=== PATIENT | female | born 1955 | race Caucasian/White ===

== ENCOUNTER → 2017-12-20 16:05 | Outpatient (CLI) | payer SELFPAY ==
[2017-12-27 11:47] LABS: HPV Reflexed? NOT INDICATED
== END ==
PROVIDERS: Family Provider Internal Medicine; PCP Internal Medicine; Visit Provider Obstetrics & Gynecology
DX: Z12.4 Encounter for screening for malignant neoplasm of cervix (principal)
CPT/HCPCS: 88175; G0145

== ENCOUNTER → 2017-12-21 08:41 | Outpatient (CLI) | payer BC, SELFPAY ==
[2017-12-21 09:29] LABS: Hemoglobin A1c 5.1 % (4.2-6.3)
[2017-12-21 09:41] LABS: Estradiol 20.7 pg/mL; Free T3 2.6 pg/mL (2.18-3.98); T4 Free Direct 0.99 ng/dL (0.76-1.46); Thyroid Stim Hormone (TSH) 1.73 uIU/mL (0.358-3.74)
[2017-12-22 11:46] LABS: DHEA Sulfate 47.8 ug/dL (29.4-220.5)
== END ==
PROVIDERS: Family Provider Internal Medicine; PCP Internal Medicine; Visit Provider Obstetrics & Gynecology
DX: Z78.0 Asymptomatic menopausal state (principal)
CPT/HCPCS: 36415; 82533; 82627; 82670; 83036; 84144; 84403; 84439; 84443; 84481; 82626

== ENCOUNTER → 2018-01-08 07:19 | Outpatient (CLI) | payer BC, SELFPAY | PROVIDERS: Family Provider Internal Medicine; PCP Internal Medicine; Visit Provider Obstetrics & Gynecology | DX: Z12.31 Encounter for screening mammogram for malignant neoplasm of breast (principal) | CPT/HCPCS: 77063; 77067 ==

== ENCOUNTER → 2018-01-15 09:06 | Outpatient (CLI) | payer BC, SELFPAY | PROVIDERS: Family Provider Internal Medicine; PCP Internal Medicine; Visit Provider Obstetrics & Gynecology | DX: R92.8 Other abnormal and inconclusive findings on diagnostic imaging of breast (principal) | CPT/HCPCS: 76642; 77065 ==

== ENCOUNTER → 2018-05-21 09:49 | Outpatient (CLI) | payer BC, SELFPAY ==
--- NOTE | 2018-05-21 09:53 | CDU_ITS ---
Reason For Study: Carotid Stenosis Rt. Velocities/BP Lt. Velocities/BP Prox CCA 99/22 cm/sec. Prox CCA 70/15 cm/sec. Mid CCA 82/22 cm/sec. Mid CCA 86/31 cm/sec. Dist CCA 80/28 cm/sec. Dist CCA 71/24 cm/sec. Prox ICA 63/23 cm/sec. Prox ICA 71/26 cm/sec. Mid ICA 100/45 cm/sec. Mid ICA 90/38 cm/sec. Dist ICA 61/30 cm/sec. Dist ICA 99/45 cm/sec. Rt. ICA/CCA = 1.22. Lt. ICA/CCA = 1.15. Prox ECA 82/21 cm/sec. Prox ECA 83/22 cm/sec. Rt. Vert. 49/18 cm/sec. Lt. Vert. 37/15 cm/sec. Right Extracranial There is intimal thickening but no significant atherosclerotic plaque noted in the right common carotid artery. There is intimal thickening but no significant atherosclerotic plaque noted in the right internal carotid artery. The right internal carotid artery is very tortuous. There is no significant atherosclerotic plaque noted in the right external carotid artery. Antegrade flow is noted in the right vertebral artery. Left Extracranial There is intimal thickening but no significant atherosclerotic plaque noted in the left common carotid artery. There is no significant atherosclerotic plaque noted in the left internal carotid artery. The left internal carotid artery is very tortuous. There is no significant atherosclerotic plaque noted in the left external carotid artery. Antegrade flow is noted in the left vertebral artery. Procedure Carotid Duplex 08252. Exam performed in department. Interpretation Summary No hemodynamically significant plague or stenosis bilateral extracranial internal carotid arteries with <50% stenosis bilaterally. Normal flow bilateral external carotids Patent and antegrade vertebrals bilaterally Ordering Physician: Ivana Kirk Referring Physician: Ivana Kirk Performed By: Cindy Miranda, RDCS, RVT
== END ==
PROVIDERS: Family Provider Internal Medicine; PCP Internal Medicine; Referring Provider Internal Medicine; Visit Provider Internal Medicine
DX: I65.29 Occlusion and stenosis of unspecified carotid artery (principal)
CPT/HCPCS: 93880

== ENCOUNTER → 2018-05-29 09:08 | Outpatient (CLI) | payer BC, SELFPAY ==
[2018-05-29 12:21] LABS: Estradiol 12.3 pg/mL
[2018-05-29 12:26] LABS: Progesterone Level 0.26 ng/mL (See Comment)
== END ==
PROVIDERS: Visit Provider Obstetrics & Gynecology
DX: N95.1 Menopausal and female climacteric states (principal); N94.3 Premenstrual tension syndrome
CPT/HCPCS: 36415; 82670; 84144

== ENCOUNTER → 2019-01-24 06:38 | Outpatient (CLI) | payer BC, SELFPAY ==
--- NOTE | 2019-01-25 11:39 | STRESSREP ---
Stress Test Report Date: 01/25/2019 Procedure: Exercise tolerance test/imaging study Indications: Chest pain Consent: Per the patient Procedure: The patient exercised on a Mann protocol for 5 minutes and 30 seconds achieving a peak heart rate of 164 bpm (103 % predicted maximal heart rate) with a peak blood pressure 170/90 mmHg and a peak MET capacity of 7 METs. The baseline ECG demonstrated normal sinus rhythm. The peak exercise ECG demonstrated sinus tachycardia with baseline artifact. No definite ischemic changes. EKG during recovery revealed no definite ischemic changes [There were no cardiac dysrhythmias pretest, during exercise, or recovery]. The functional capacity was considered slightly decreased for age. There was chest tightness at peak exercise. The examination was discontinued secondary to dyspnea. Impression: 1. Technically adequate (percent predicted maximal heart rate greater than 85%) exercise tolerance test 2. Stress test is negative for exercise-induced EKG changes of ischemia 3. The test test is positive for exercise-induced chest pain 4. Functional capacity is slightly decreased for age 5. Nuclear images pending Myocardial perfusion imaging study: Technique: The patient was injected with 14.2 mCi of technetium 99m Cardiolite and subsequently rest SPECT Cardiolite nuclear imaging was obtained in the horizontal long, vertical long, and short axis views. The patient exercised on a Mann protocol. Please see above for details. The patient was injected with 44.1 mCi of technetium 99m Cardiolite and subsequently stress SPECT Cardiolite nuclear imaging was obtained in the horizontal long, vertical long, and short axis views. A gated Cardiolite study at peak stress was obtained. Interpretation: Rest and stress SPECT Cardiolite nuclear imaging status post realignment, normalization, and attenuation correction, demonstrates overall normal myocardial radioisotope uptake. The gated Cardiolite study demonstrates no significant regional wall motion abnormalities. The reported LVEF is greater than 70 %. Impression: 1. There is no evidence of significant ischemia or infarction. 2. The gated Cardiolite study reports an LVEF of greater than 70 %. This note was generated with [employer] software. It may contain incorrect words, spelling, and punctuation that were not noted in checking the note before signing.
== END ==
PROVIDERS: Family Provider Internal Medicine; PCP Internal Medicine; Referring Provider Internal Medicine; Visit Provider Internal Medicine
DX: R07.9 Chest pain, unspecified (principal)
CPT/HCPCS: 78452; 93017; A9500; A4216

== ENCOUNTER 2020-08-04 16:50 | Outpatient (RCR) | payer BC, SELFPAY ==
[2020-08-04] MEDS: COVID-19 VACC, MRNA(PFIZER)/PF 30 MCG/0.3 ML SYRINGE IM (09:19)
[2020-08-25] MEDS: COVID-19 VACC, MRNA(PFIZER)/PF 30 MCG/0.3 ML SYRINGE IM (09:10)
== END 2020-10-27 23:59 ==
LOC: IMMUN 16:50
PROVIDERS: PCP Internal Medicine; Visit Provider Family Medicine
DX: Z23 Encounter for immunization (principal)
CPT/HCPCS: 0001A; 0002A; 91300

== ENCOUNTER → 2020-11-11 11:46 | Outpatient (CLI) | payer BC, SELFPAY ==
--- NOTE | 2020-11-11 12:00 | CT_ITS ---
STUDY: CTA CHEST REASON FOR EXAM: Female, 65 years old. PE PROTOCOL. COUGH, HX OF COVID, SOB RADIATION DOSAGE (If Supplied By Facility): CTDIvol = ( 11.36 ) mGy, DLP = ( 508.83 ) mGycm TECHNIQUE: The examination was performed with the intravenous administration of IV 100mL Isovue-370. Post-processing of the angiographic images was performed, with multiplanar reformation and 3D reconstruction. Individualized dose optimization techniques were used for this CT. COMPARISON: None. FINDINGS: Normal enhancement of the main pulmonary artery and right and left pulmonary arteries. Normal enhancement of the bilateral peripheral pulmonary arteries. There is no demonstrated pulmonary embolism. Normal thoracic aorta and visualized great vessels. There is no demonstrated aortic dissection. Normal heart and pericardium. Normal mediastinum. Normal hilar regions. Normal visualized trachea and bronchi. The lungs are well expanded. Normal pulmonary parenchyma. Normal pleura. Normal chest wall structures. Hypertrophic changes involving the dorsal spine noted. Normal visualized upper abdomen. CT/CTA Chest W/WO Contrast IMPRESSION: Normal CTA chest examination, without a demonstrated pulmonary embolism or arterial dissection. Electronically Signed: Andrei Patterson, at 12:23 EDT Tel , Service support ,
[2020-11-11 12:06] LABS: CREATININE FINGERSTICK 0.8 mg/dL (0.55-1.02); EGFR FINGERSTICK > 60.0000 mL/min (>60)
== END ==
PROVIDERS: PCP Internal Medicine; Referring Provider Internal Medicine; Visit Provider Internal Medicine
DX: R06.02 Shortness of breath (principal)
CPT/HCPCS: 71275; Q9967

== ENCOUNTER → 2020-12-07 16:26 | Outpatient (CLI) | payer BC, SELFPAY ==
[2020-12-07 17:16] LABS: Hematocrit 34.6 % (37-47); Hemoglobin 10.7 g/dL (12.0-15.0); Mean Corp Hgb Conc 30.9 g/dL (32-36); Mean Corpuscular Hgb 25.1 pg (27.0-32.0); Mean Corpuscular Volume 81.2 fL (81-99); Mean Platelet Vol. 10.2 fl (6.2-12.0); Platelet Count 295 K/mm3 (150-450); RBC Distribution Width CV 16.9 % (11.6-14.6); Red Blood Count 4.26 M/mm3 (4.2-5.4); White Blood Count 6.6 K/mm3 (4.4-11.0)
== END ==
PROVIDERS: PCP Internal Medicine; Visit Provider Internal Medicine Pulmonary Disease
DX: J45.909 Unspecified asthma, uncomplicated (principal)
CPT/HCPCS: 36415; 85027

== ENCOUNTER 2021-01-11 06:21 | Day surgery (SDC) | payer BC, SELFPAY ==
[2020-12-22 10:07] VITALS: BMI 45.8
--- NOTE | 2021-01-11 06:38 | PCM.HP.BLA ---
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: No Is patient in pain?: No Allergies acetaminophen Adverse Reaction (Intermediate, Verified 12/22/20 10:08) muscle aches Medications albuterol sulfate 90 mcg/actuation aerosol inhaler 2 puff INHALATION Q6H PRN 12/22/20 [History Confirmed 12/22/20] citalopram 10 mg tablet 10 mg PO DAILY 12/22/20 [History Confirmed 12/22/20] fluticasone furoate 100 mcg-vilanterol 25 mcg/dose inhalation powder 1 inh INHALATION DAILY 12/22/20 [History Confirmed 12/22/20] ibuprofen 200 mg tablet 200 mg PO Q6H PRN 12/22/20 [History Confirmed 12/22/20] lorazepam 0.5 mg tablet 0.5 mg PO QHS PRN 12/22/20 [History Confirmed 12/22/20] multivitamin with minerals 1 tab PO DAILY 12/22/20 [History Confirmed 12/22/20] Is last menstrual period known: No Post menopausal: Yes Patient : No PFSH Medical History (Updated 12/22/20 @ 14:[address] Fatimah Tan MD) Anemia Anxiety and depression Asthma Carotid stenosis History of COVID-19 History of LEEP (loop electrosurgical excision procedure) of cervix complicating HTN (hypertension) Hyperlipidemia Obesity Rosacea Vitamin D deficiency Surgical History (Updated 12/22/20 @ 10:06 by Larisa Barajas) History of colonoscopy (~2010) History of tubal ligation Family History (Updated 12/22/20 @ 10:07 by Larisa Barajas) Sister Multiple sclerosis Father Cancer Social History Smoking Status: Never smoker HPI HPI HPI: GRACIE BAH, is a 65 F who presents to the office today for endoscopy due to anemia/fatigue. Patient's current hemoglobin 10.7. Did have previous hemoglobins at an outside hospital/lab. Patient denies seeing any blood in her stool does state that she has bowel once daily. Does admit to occasional abdominal cramps which also occurred daily which patient states she has had for years. Patient states she only gets reflux symptoms if she eats after 7:00 PM and does not get it very often denies ever having EGD previously patient did previously have a colonoscopy in 2010 at [facility] which patient states was normal. ROS Resp Respiratory: Yes shortness of breath Gastro Gastrointestinal: Yes abdominal pain, No nausea or vomiting, No diarrhea, Yes constipation, No blood in stool, No acid reflux, No hemorrhoids, No ulcers, No gallbladder problem and No black,tarry stools Exam Const General: cooperative, healthy appearing, comfortable and no acute distress Neck Neck: normal visual inspection Resp Effort & Inspection: normal respiratory effort Cardio Rate: regular rate GI Inspection: non-distended Palpation: soft, no guarding and nontender Skin General: no rashes or lesions noted Neuro General: patient oriented x3 Psych Affect: normal affect Assessment and Plan Assessment and Plan (1) Anemia: Status: Acute Plan - Dr. Fatimah Tan MD: I have discussed the above with the patient. I have offered the patient EGD and colonoscopy for evaluation. I have explained the risks/benefits of the procedure and described the procedure. I have discussed the risks with the patient, including but not limited to: infection, bleeding, perforation of the GI tract requiring emergency surgery, inability to complete the procedure, injury to any internal organs, complications of anesthesia, etc. - the patient understands and agrees to proceed. I have answered all the patient's questions to the patient's satisfaction and the patient has no further questions. The patient has been given instructions for the colon cleansing preparation. 1 day clears, MiraLAX Dulcolax split prep. Fatimah Tan M.D. Pager: [phone] [facility] [address] [place] [address], [facility], [address] [place] [address] Office: [phone] Plan Details Other Orders: Orders: Colonoscopy Today EGD Today Coding Level of Care Code Off vis,new,level 3 Diagnoses Anemia D64.9 12/22/20 1433<Electronically signed by Fatimah Tan MD>Date [facility] [facility]
[2021-01-11 06:47] VITALS: BP 139/91; PULSE 91; RESP 16; TEMP 36.9; O2SAT 97; BMI 44.9
[2021-01-11] MEDS: Lactated Ringers 1,000 ML 100 ML IV (07:07)
--- NOTE | 2021-01-11 07:30 | IMM_PTH ---
PATIENT: GRACIE BAH LOC: EN U#:[id number] AGE/SX: 65/F ROOM: RE01/11/[address]: Dr. Fatimah Tan MD : 1955 BED: DIS: 01/11/2021 SPEC #: [id number] RECD: 01/11/21 12:07 STATUS: JO REQ #: [id number] MICHAEL: 01/11/21 07:[address]: Fatimah Tan DEPT: IMMUNOHISTOCHEMISTRY RECD BY: Isi Smith ENTERED: 01/11/21 12:07 SP TYPE: IMMUNO OTHR DR: Dr. Ivana Kirk, DO Tissues: A - Stomach, NOS Procedures: H Pylori (initial) PHYSICIAN & INSTITUTION [place] [id number] SPECIMEN INFORMATION: Tissue Source: A ? Antrum biopsy Clinical Info: Anemia Specimen Number: [id number] CPT code: 41947 METHODOLOGY: Deparaffinized sections of prefer/formalin-fixed tissue or PAP/DQ stained slides are incubated with monoclonal/polyclonal antibodies/oligonucleotide probes. Localization is made via biotin free immunoperoxidase method. Appropriate controls are performed and reacted as expected. Results on target cell population are indicated in the following table: RESULTS: ANTIBODY / CLONE RESULT Block A H Pylori (polyclonal) positive These tests were developed and their performance characteristics determined by [facility]. They may not have been cleared or approved by the U.S. Food and Drug Administration. The FDA has determined that such clearance or approval is not necessary. INTERPRETATION: A. Antrum biopsy: Positive for numerous Helicobacter pylori organisms. SJ:richard 01/12/2021
--- NOTE | 2021-01-11 07:30 | EGD_PTH ---
PATIENT: GRACIE BAH LOC: EN U#:[id number] AGE/SX: 65/F ROOM: RE01/11/[address]: Dr. Fatimah Tan MD : 1955 BED: DIS: 01/11/2021 SPEC #: [id number] RECD: 01/11/21 10:05 STATUS: JO REFritz #: [id number] MICHAEL: 01/11/21 07:[address]: Fatimah Tan DEPT: SURGICAL PATHOLOGY RECD BY: Eveline Porras ENTERED: 01/11/21 12:44 SP TYPE: EGD BIOPSY OT DR: Dr. Ivana Kirk DO Tissues: A - Gastric mucous membrane B - Gastric mucous membrane C - Cecum, NOS D - Ascending colon Procedures: Special Stain Group II Surgery Specimen Level IV Alcian Blue/PAS (control) HEADER OPERATION: Colonoscopy, EGD ([facility]) PRE-OP DIAGNOSIS: Anemia TISSUE SUBMITTED: A - Antrum biopsy for H. pylori and path, B - GE junction biopsy, C - Cecum biopsy, D - Ascending colon biopsy MICROSCOPIC DIAGNOSIS A. Antrum, biopsy: Moderate chronic active gastritis. Focal intestinal metaplasia. See comment. B. GE junction, biopsy: A fragment of gastroesophageal mucosa with rare cells with intestinal metaplasia (goblet cell metaplasia), consistent with Rees?s esophagus. Mild chronic inflammation. Negative for dysplasia. See comment. C. Cecum, biopsy: Tubular adenoma. D. Ascending colon, biopsy: Fragments of colonic mucosa with focal minimal adenomatous changes. SJ:richard 01/12/2021 COMMENT A. The results of immunohistochemistry for Helicobacter pylori will be reported separately ([id number]). Alcian blue/PAS stain with matched control is used in the evaluation of the specimen. B. Alcian blue/PAS stain with matched control is used in the evaluation of the specimen. MICROSCOPIC DESCRIPTION Slides are reviewed. GROSS DESCRIPTION A - Received in fixative is one container labeled with the patient's name and designated antrum biopsy. The specimen consists of two irregular fragments of light booker soft tissue that in aggregate measure 0.5 x 0.3 x 0.1 cm. The specimen is totally submitted in one cassette. B - Received in fixative is one container labeled with the patient's name and designated GE junction biopsy. The specimen consists of one irregular fragment of light booker soft tissue that measures 0.3 x 0.3 x 0.1 cm. The specimen is totally submitted in one cassette. C - Received in fixative is one container labeled with the patient's name and designated cecum biopsy. The specimen consists of two irregular fragments of light booker soft tissue that in aggregate measure 0.3 x 0.3 x 0.1 cm. The specimen is totally submitted in one cassette. D - Received in fixative is one container labeled with the patient's name and designated ascending colon biopsy. The specimen consists of two irregular fragments of light booker soft tissue that in aggregate measure 0.4 x 0.3 x 0.1 cm. The specimen is totally submitted in one cassette. / SJ:rg 01/11/21 TC:1 CPT: 82569 x4, 44982 x2
--- NOTE | 2021-01-11 08:15 | OP.EGD_ITS ---
Patient Name: Maira Montemayor Procedure Date: 01/11/2021 7:42 AM Date of : 1955 Age: 65 Procedure: Upper GI endoscopy Indications: Iron deficiency anemia Providers: Fatimah Tan MD Medicines: Monitored Anesthesia Care Patient Profile: This is a 65 year old female. Complications: No immediate complications. Procedure: Pre-Anesthesia Assessment: - Prior to the procedure, a History and Physical was performed, and patient medications and allergies were reviewed. The patient's tolerance of previous anesthesia was also reviewed. The risks and benefits of the procedure and the sedation options and risks were discussed with the patient. All questions were answered, and informed consent was obtained. Prior Anticoagulants: The patient has taken no previous anticoagulant or antiplatelet agents. ASA Grade Assessment: Per anesthesia. After reviewing the risks and benefits, the patient was deemed in satisfactory condition to undergo the procedure. After obtaining informed consent, the endoscope was passed under direct vision. Throughout the procedure, the patient's blood pressure, pulse, and oxygen saturations were monitored continuously. The gastroscope was introduced through the mouth, and advanced to the second part of duodenum. The upper GI endoscopy was accomplished without difficulty. The patient tolerated the procedure well. Scope In: 7:49:18 AM Scope Out: 7:53:14 AM Total Procedure Duration Time 0 hours 3 minutes 56 seconds Findings: The Z-line was irregular and was found 32 cm from the incisors. Biopsies were taken with a cold forceps for histology. A 3 cm hiatal hernia was present. Diffuse moderately erythematous mucosa without bleeding was found in the gastric antrum. Biopsies were taken with a cold forceps for histology. Biopsies were taken with a cold forceps for Helicobacter pylori cultures. The examined duodenum was normal. Impression: - Z-line irregular, 32 cm from the incisors. Biopsied. - 3 cm hiatal hernia. - Erythematous mucosa in the antrum. Biopsied. - Normal examined duodenum. Recommendation: - Await pathology results. - Discharge patient to home. - Resume previous diet. - Continue present medications. - Use Protonix (pantoprazole) 40 mg PO daily for 1 month. Procedure Code(s): --- Professional --- 97009, PT, Esophagogastroduodenoscopy, flexible, transoral; with biopsy, single or multiple Diagnosis Code(s): --- Professional --- K22.8, Other specified diseases of esophagus K44.9, Diaphragmatic hernia without obstruction or gangrene K31.89, Other diseases of stomach and duodenum D50.9, Iron deficiency anemia, unspecified CPT copyright 2017 [employer]. All rights reserved. The codes documented in this report are preliminary and upon boating safety officer review may be revised to meet current compliance requirements. MD Fatimah Frtiz MD 01/11/2021 8:15:11 AM This report has been signed electronically. Number of Addenda: 0 Note Initiated On: 01/11/2021 7:42 AM
[2021-01-11 08:16] VITALS: BP 139/91; BP 146/89; PULSE 94; RESP 16; TEMP 36.6; O2SAT 92
--- NOTE | 2021-01-11 08:16 | OP.CCLET_ITS ---
01/11/2021 Ivana Kirk [address] [place] [address] Re : Upper GI endoscopy procedure for Maira Montemayor Dear Dr. Kirk This procedure was performed on Monday, January 11, 2021. My impressions and recommendations are as follows: Impressions : - Z-line irregular, 32 cm from the incisors. Biopsied. - 3 cm hiatal hernia. - Erythematous mucosa in the antrum. Biopsied. - Normal examined duodenum. Recommendations : - Await pathology results. - Discharge patient to home. - Resume previous diet. - Continue present medications. - Use Protonix (pantoprazole) 40 mg PO daily for 1 month. My findings are described in the full procedure note, which is enclosed. If I can be of further assistance, please feel free to contact me at Doctor phone number(s): , Work: . Sincerely, MD Fatimah Fritz MD 01/11/2021 8:15:11 AM This report has been signed electronically.
[2021-01-11 08:20] VITALS: BP 133/88; BP 139/91; PULSE 85; RESP 18; O2SAT 93
--- NOTE | 2021-01-11 08:22 | OP.COLON_ITS ---
Patient Name: Maira Montemayor Procedure Date: 01/11/2021 7:56 AM Date of : 1955 Age: 65 Procedure: Colonoscopy Indications: Iron deficiency anemia Providers: Fatimah Tan MD Medicines: Monitored Anesthesia Care Patient Profile: This is a 65 year old female. Last Colonoscopy: 2010. Complications: No immediate complications. Procedure: Pre-Anesthesia Assessment: - Prior to the procedure, a History and Physical was performed, and patient medications and allergies were reviewed. The patient's tolerance of previous anesthesia was also reviewed. The risks and benefits of the procedure and the sedation options and risks were discussed with the patient. All questions were answered, and informed consent was obtained. Prior Anticoagulants: The patient has taken no previous anticoagulant or antiplatelet agents. ASA Grade Assessment: Per anesthesia. After reviewing the risks and benefits, the patient was deemed in satisfactory condition to undergo the procedure. After I obtained informed consent, the scope was passed under direct vision. Throughout the procedure, the patient's blood pressure, pulse, and oxygen saturations were monitored continuously. The Colonoscope was introduced through the anus and advanced to the cecum, identified by the appendiceal orifice, ileocecal valve and palpation. The colonoscopy was performed without difficulty. The patient tolerated the procedure well. The quality of the bowel preparation was good. Scope In: 7:57:32 AM Scope Withdrawal Time 0 hours 9 minutes 29 seconds Scope Out: 8:10:28 AM Total Procedure Duration Time 0 hours 12 minutes 56 seconds Findings: Hemorrhoids were found on perianal exam. Multiple small-mouthed diverticula were found in the sigmoid colon and descending colon. Two sessile polyps were found in the ascending colon and cecum. The polyps were less than 5 mm in size. These polyps were removed with a cold biopsy forceps. Resection and retrieval were complete. No additional abnormalities were found on retroflexion. Impression: - Hemorrhoids found on perianal exam. - Diverticulosis in the sigmoid colon and in the descending colon. - Two less than 5 mm polyps in the ascending colon and in the cecum, removed with a cold biopsy forceps. Resected and retrieved. Recommendation: - Discharge patient to home. - High fiber diet. - Continue present medications. - Await pathology results. - Repeat colonoscopy in 5 years for surveillance based on pathology results. Procedure Code(s): --- Professional --- 46342, Colonoscopy, flexible; with biopsy, single or multiple Diagnosis Code(s): --- Professional --- K64.9, Unspecified hemorrhoids D12.2, Benign neoplasm of ascending colon D12.0, Benign neoplasm of cecum D50.9, Iron deficiency anemia, unspecified K57.30, Diverticulosis of large intestine without perforation or abscess without bleeding CPT copyright 2017 [employer]. All rights reserved. The codes documented in this report are preliminary and upon presser machine review may be revised to meet current compliance requirements. MD Fatimah Fritz MD 01/11/2021 8:21:30 AM This report has been signed electronically. Number of Addenda: 0 Note Initiated On: 01/11/2021 7:56 AM
--- NOTE | 2021-01-11 08:23 | OP.CCLET_ITS ---
01/11/2021 Ivana Kirk [address] [place] [address] Re : Colonoscopy procedure for Maira Montemayor Dear Dr. Kirk This procedure was performed on Monday, January 11, 2021. My impressions and recommendations are as follows: Impressions : - Hemorrhoids found on perianal exam. - Diverticulosis in the sigmoid colon and in the descending colon. - Two less than 5 mm polyps in the ascending colon and in the cecum, removed with a cold biopsy forceps. Resected and retrieved. Recommendations : - Discharge patient to home. - High fiber diet. - Continue present medications. - Await pathology results. - Repeat colonoscopy in 5 years for surveillance based on pathology results. My findings are described in the full procedure note, which is enclosed. If I can be of further assistance, please feel free to contact me at Doctor phone number(s): , Work: . Sincerely, MD Fatimah Fritz MD 01/11/2021 8:21:30 AM This report has been signed electronically.
[2021-01-11 08:25] VITALS: BP 123/77; BP 139/91; PULSE 80; RESP 18; O2SAT 94
[2021-01-11 08:32] VITALS: BP 119/82; BP 139/91; PULSE 80; RESP 16; TEMP 36.6; O2SAT 94
[2021-01-11 08:51] VITALS: BP 139/91
== END 2021-01-11 09:04 | disposition home or self-care (01) ==
LOC: EN 06:25 → AC 06:26
PROVIDERS: PCP Internal Medicine; Referring Provider Internal Medicine; Visit Provider Surgery
PROC: 0DJD8ZZ Inspection of Lower Intestinal Tract, Via Natural or Artificial Opening Endoscopic (ICD-10-PCS; CPT 45378; principal; 2021-01-11 07:25)
DX: K29.50 Unspecified chronic gastritis without bleeding (principal); B96.81 Helicobacter pylori [H. pylori] as the cause of diseases classified elsewhere; K22.8 Other specified diseases of esophagus; K44.9 Diaphragmatic hernia without obstruction or gangrene; D12.0 Benign neoplasm of cecum; D12.2 Benign neoplasm of ascending colon; K64.9 Unspecified hemorrhoids; K57.30 Diverticulosis of large intestine without perforation or abscess without bleeding; D50.9 Iron deficiency anemia, unspecified; I10 Essential (primary) hypertension; E78.5 Hyperlipidemia, unspecified; E66.9 Obesity, unspecified; M19.90 Unspecified osteoarthritis, unspecified site; Z68.41 Body mass index [BMI] 40.0-44.9, adult; Z79.899 Other long term (current) drug therapy; Z86.16 Personal history of COVID-19; Z86.73 Personal history of transient ischemic attack (TIA), and cerebral infarction without residual deficits
CPT/HCPCS: 43239; 45380; 88305; 88313; 88342; J7120; J2405

== ENCOUNTER → 2021-03-04 | Outpatient (CLI) | payer BC, SELFPAY ==
[2021-03-07 09:57] LABS: H. PYLORI STOOL AG Negative (Negative)
== END | disposition home or self-care (01) ==
LOC: LABSPEC 08:56
PROVIDERS: PCP Internal Medicine; Referring Provider Surgery; Visit Provider Surgery
DX: A04.8 Other specified bacterial intestinal infections (principal)

== ENCOUNTER 2022-12-05 12:00 | Outpatient (RCR) | payer MEDICARE, OTHER, SELFPAY ==
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
--- NOTE | 2022-10-28 09:32 | HP.PTREVAL_ITS ---
[facility] Mathe[facility], It has been my pleasure to treat GRACIE BAH (SUSI) over the last 8 visits for R knee bursitis, chondromalacia and OA.. Please see the progress note below for an update on the physical therapy plan of care! Subjective: PATIENT REPORTS HER KNEE IS DOING A LITTLE BIT BETTER. PATIENT REPORTS SHE CAN DO 2 STEPS WITHOUT PAIN NOW BUT PAIN ON 3 STEP. PATIENT REPORTS SHE IS STILL HAVING CLICKING. Objective/Function: PATIENT WAS SEEN TODAY FOR RE-ASSESSMENT OF PROGRESS TOWARD THE SET PT GOALS AND THE NEED FOR FURTHER PHYSICAL THERAPY VS READINESS FOR DISCHARGE. PATIENT IS MAKING SLOW PROGRESS WITH PT AND IS A GOOD CANDIDATE TO CONTINUE PT BASED ON PROGRESS MADE AND ROOM FOR FURHTER IMPROVEMENT. SHE IS AGR EEABLE. INSTRUCTED PATIENT TO SCHEDULE RE-CHECK WITH ORTHO IF SHE DOES NOT CONTINUE TO IMPROVE OR IF SHE WORSENS. UPON EXAM TODAY: THIS PATIENT AMBULATES INDEP'LY INTO PT WITHOUT ANY ASSISTIVE DEVICES, NO LOB, AND NO LIMP ON OR R LE STIFFNESS NOTED. THE SWELLING IN HER R KNEE IS VERY MINIMAL. SHE IS ABLE TO FULLY EXTEND HER KNEE AND DOES NOT C/O PAIN DURING MVMT. SHE IS NOW ABLE TO FLEX HER R KNEE IN LYING WITH A HEEL SLIDE TO 130 DEG AND DOES NOT C/O PAIN DURING MVMT OR AT THE END OF THE AVAILABLE ROM. R knee flex MMT; 4-/5. R knee ext MMT 4/5. R hip MMT 4-/5. R ankle MMT 5/5. CORE STRENGTH: POOR Plan Plan: CONTINUE 2X'S A WK X 10 VISITS: AQUATIC THREAPY FOR PAIN RELIEF, POSTURE CORRECTION/STRENGTHENING, INSTRUCTION IN APPROPRIATE BODY MECHANICS AND ACTIVITY MODIFICATIONS. DLS STARTING WITH A NEUTRAL SPINE PROGRESSING ROM TOLERATED. LAKISHA LE ROM, STRETCHING AND STRENGTHENING. HEP INSTRUCTION. Balance/Gait/Functional tests - Balance/Special Test Scores Lower Extremity Functional Score: 45 Goals Goal 1:: DECREASE C/O R KNEE PAIN Goal Time Frame: 4-6 Weeks Goal Progress: Progressing Goal 2:: INCREASE FUNCTIONAL ROM OF R KNEE TO EASE ADL'S. Goal Time Frame: 4-6 Weeks Goal Progress: Progressing Goal 3:: IMPROVE R LE FUNCTIONAL STRENGTH TO EASE ADL'S. Goal Time Frame: 4-6 Weeks Goal Progress: Progressing Goal 4:: PATIENT WILL BE INDEP WITH AN EX PROGRAM FOR CONTINUED IMPROVEMENT ONCE FORMAL PHYSICAL THERAPY CONCLUDES. Goal Time Frame: 4-6 Weeks Goal Progress: Progressing Anticipated Interventions Patient/Client Instruction: Educate patient on: Condition, Plan of Care, Risk Factors For the Purpose of:: To improve self management Therapeutic Exercise to Include: Strength training, Body mechanics, Postural training, Flexibilty training, Gait and locomotor training, Neuromotor development, In an aquatic setting, Dynamic Lumbar Stabilization For the Purpose of:: To decrease pain, To increase ROM, To improve muscle performance and motor function, To increase tolerance to activity/condition/position, To improve ability of physical actions for home/community/work/leisure, To improve gait and locomotor functions Please do not hesitate to contact me at [phone] by phone or if you have questions or concerns regarding this new plan of care! Sincerely, Erin Francisco, PT, Cert MDT
--- NOTE | 2022-12-05 13:21 | HP.PTDCSUM ---
Discharge Summary D/C summary: It has been my pleasure to treat GRACIE BAH (SUSI) referred by [facility], with the diagnosis of R knee bursitis, chondromalacia and OA. for a total of 13 visit(s). Discharge Date: Please see the following information for a summary of their discharge status. Subjective Subjective: PATIENT REPORTS IT HELPED HER KNEE PAIN A LITTLE BIT MORE TO CONTINUE AQUATIC THERAPY BUT SHE STILL HAS PAIN, BURNING AND CLICKING IN HER KNEE. STATES SHE IS AVOIDING STEPS. PATIENT REPORTS SEEING DR. NELSON FOR THE FIRST TIME TODAY AND SHE IS GOING TO WORK ON aligning her back and hips to see if it helps her knee. PATIENT REPORTS SHE IS A [employer] AND PLANS TO CONTINUE INDEP WATER EX AT THIS POINT TOO. Pain Rknee: Pain Intensity (Out of 10): 3 Overall Improvement % Improvement: 50 Objective Objective/Function: THIS PATIENT WAS SEEN TODAY FOR RE-ASSESSMENT OF PROGRESS TOWARD THE SET PT GOALS AND THE NEED FOR FURTHER PHYSICAL THERAPY VS READINESS FOR DISCHARGE. SHE IS NOT PROGRESSING WITH PT AT THIS POINT ALTHOUGH SHE HAS NOT BEEN UNABLE TO ATTEND PHYSICAL THERAPY FOR ALMOST ONE MONTH DUE TO PERSONAL ISSUES. UPON EXAM TODAY: THIS PATIENT AMBULATES INDEP'LY INTO PT WITHOUT ANY ASSISTIVE DEVICES, NO LOB, AND NO LIMP ON OR R LE STIFFNESS NOTED. SHE REPORTS SHE FEELS LIKE SHE IS OUT OF ALIGNMENT THOUGH. THE SWELLING IN HER R KNEE IS VERY MINIMAL. SHE IS ABLE TO FULLY EXTEND HER KNEE AND DOES NOT C/O PAIN DURING MVMT. SHE IS STILL ABLE TO FLEX HER R KNEE IN LYING WITH A HEEL SLIDE TO 130 DEG AND DOES NOT C/O PAIN DURING MVMT OR AT THE END OF THE AVAILABLE ROM. R knee flex MMT; 4-/5. R knee ext MMT 4/5. R hip MMT 4-/5. R ankle MMT 5/5. R EHL 5/5. CORE STRENGTH: POOR. LEFS SCORE HAS IMPROVED 5 POINTS OVER-ALL SINCE LAST RE-CHECK. Goals Goal 1:: DECREASE C/O R KNEE PAIN Goal Progress: Not Progressing Goal 2:: INCREASE FUNCTIONAL ROM OF R KNEE TO EASE ADL'S. Goal Progress: Not Progressing Goal 3:: IMPROVE R LE FUNCTIONAL STRENGTH TO EASE ADL'S. Goal Progress: Not Progressing Goal 4:: PATIENT WILL BE INDEP WITH AN EX PROGRAM FOR CONTINUED IMPROVEMENT ONCE FORMAL PHYSICAL THERAPY CONCLUDES. Goal Progress: Goal Met Plan Plan: D/C DUE TO INDEP POOL PROGRAM. PATIENT AGREEABLE. THIS PT ENCOURAGED ORTHO FOLLOW UP AND PATIENT IS AGREEABLE. D/C Information d/c sentence: If there are questions or concerns regarding this patient's physical therapy, please feel free to call me at [phone]. Thank you for the referral of this patient. Sincerely, Erin Francisco, PT, Cert MDT Balance/Gait/Functional tests Balance/Special Test Scores Lower Extremity Functional Score: 50
== END 2022-12-05 19:00 | disposition home or self-care (01) ==
LOC: PT 12:00
PROVIDERS: PCP Internal Medicine; Referring Provider Physician Assistant; Visit Provider Physician Assistant
DX: M70.50 Other bursitis of knee, unspecified knee (principal); M22.41 Chondromalacia patellae, right knee; M17.11 Unilateral primary osteoarthritis, right knee
CPT/HCPCS: 97113; 97162; 97164

== ENCOUNTER → 2023-02-07 | Outpatient (CLI) | payer MEDICARE, OTHER, SELFPAY ==
--- NOTE | 2023-02-07 11:09 | MRI_ITS ---
STUDY: MRI BRAIN WITH AND WITHOUT CONTRAST REASON FOR EXAM: Female, 67 years old patient with ataxia and dizziness. Attention to internal auditory canals (IAC). Previous report attached. TECHNIQUE: Standardized multiplanar fat and water weighted pulse sequences were obtained. 20 ml of IV Clariscan was administered for the contrast portion of the examination. COMPARISON: Prior comparison studies are not available for review at this time. FINDINGS: There is asymmetry of the ventricles consistent with an anatomic variant. Normal white matter tracts of the supratentorial brain. There is no evidence for recent intracranial ischemia or other cause of cytotoxic edema on diffusion weighted imaging (DWI). Normal T2* images of the brain without demonstrated susceptibility artifact. There is no demonstrated hemosiderin stain. Normal bilateral basal ganglia. Normal thalami. There is no extra-axial fluid accumulation. Normal flow voids within the major intracranial circulation suggesting patency by spin echo criteria. Normal venous enhancement. There is no enhancing intra-axial or extra-axial abnormality. Normal sella turcica, pituitary gland, infundibular stalk, optic chiasm and hypothalamus. Normal tectal plate and pineal gland. Normal midbrain, lacy and medulla. Normal cerebellum. There are large basal cisterns. Normal bilateral temporal bones. Normal bilateral internal auditory canals. No demonstrated orbital abnormality, within the constraints of a routine brain study. Normal visualized paranasal sinuses. Normal calvarium and skull base. Normal visualized soft tissue structures. Normal visualized upper cervical spine. MRI/Brain W/WO Contrast IMPRESSION: 1. No MR evidence for cerebellopontine angle mass or internal auditory canal lesion. 2. No MR evidence for acute infarct. Electronically Signed: Theresa Ibarra MD at 4:43 EDT ,
[2023-02-07 15:19] LABS: CREATININE FINGERSTICK < 0.9 mg/dL (0.55-1.02); EGFR FINGERSTICK > 60.0000 mL/min (>60)
== END | disposition home or self-care (01) ==
LOC: MRI 11:02
PROVIDERS: PCP Internal Medicine; Referring Provider Otolaryngology Otolaryngology/Facial Plastic Surgery; Visit Provider Otolaryngology Otolaryngology/Facial Plastic Surgery
DX: R27.0 Ataxia, unspecified (principal)
CPT/HCPCS: 70553; A9575

== ENCOUNTER 2023-10-02 11:04 | Outpatient (RCR) | payer MEDICARE, OTHER, SELFPAY | END 2023-10-02 19:00 | disposition home or self-care (01) | LOC: PT 11:04 | PROVIDERS: PCP Internal Medicine; Visit Provider Podiatrist | DX: M21.372 Foot drop, left foot (principal); R26.89 Other abnormalities of gait and mobility | CPT/HCPCS: 97162 ==

== ENCOUNTER → 2023-12-13 | Outpatient (CLI) | payer MEDICARE, OTHER, SELFPAY | END | disposition home or self-care (01) | LOC: OPBD 10:50 | PROVIDERS: PCP Internal Medicine; Referring Provider Nurse Practitioner Family; Visit Provider Nurse Practitioner Family | DX: Z00.00 Encounter for general adult medical examination without abnormal findings (principal) ==

== ENCOUNTER → 2023-12-13 | Outpatient (CLI) | payer MEDICARE, OTHER, SELFPAY ==
--- NOTE | 2023-12-13 11:02 | BD_ITS ---
STUDY: DUAL ENERGY X-RAY ABSORPTIOMETRY / DXA REASON FOR EXAM: Female, 68 years old. [id number] TECHNIQUE: Bone Mineral Density (BMD) measurements of lumbar spine and bilateral hips were obtained. COMPARISON: None. FINDINGS: Lumbar Spine (L1-L4): g/cm2 (0.813) / T-score (-1.5) / Z-score (0.3) Findings are suggestive of osteopenia with a low fracture risk. Left Femur Total: g/cm2 (0.951) / T-score (0.1) / Z-score (1.4) Left Femoral Neck: g/cm2 (0.688) / T-score (-1.5) / Z-score (0.2) Right Femur Total: g/cm2 (0.950) / T-score (0.1) / Z-score (1.4) Right Femoral Neck: g/cm2 (0.709) / T-score (-1.3) / Z-score (0.4) BD/Dexa Bone Density Study IMPRESSION: The patient is considered osteopenic as outlined below according to World [place] Organization (WHO) criteria with a low fracture risk. Reference Information: The T-score is the number of standard deviations above or below the standard which is normal for young adults at their peak bone mineral density. The World Health Organization (WHO) interprets the T-scores as follows: Above -1 Normal bone density Between -1 and -2.5 Osteopenia Equal to / or below -2.5 Osteoporosis As a practical clinical guideline, osteopenia may be graded as follows: Mild -1 through -1.5 Moderate -1.6 through -2.0 Severe -2.1 through -2.4 The Z-score is the number of standard deviations above or below age-matched controls. A Z-score of less than -1.5 would be considered abnormal. References: 1. NIH Osteoporosis and Related Bone Diseases www osteo.org 2. International Society for Clinical Densitometry www iscd.org 3. National Osteoporosis Foundation www nof.org Electronically Signed: Evgeny Arenas MD at 9:07 EDT ,
== END | disposition home or self-care (01) ==
LOC: CVS 10:49
PROVIDERS: PCP Internal Medicine; Referring Provider Nurse Practitioner Family; Visit Provider Nurse Practitioner Family
DX: Z78.0 Asymptomatic menopausal state (principal)
CPT/HCPCS: 77080

== ENCOUNTER → 2024-01-29 | Outpatient (CLI) | payer MEDICARE, OTHER, SELFPAY ==
--- NOTE | 2024-01-29 12:05 | US_ITS ---
STUDY: SUPERFICIAL ULTRASOUND - LEFT POPLITEAL FOSSA. REASON FOR EXAM: Female, 68 years old. Assess for bakers cyst -- posterior left knee TECHNIQUE: A superficial ultrasound was performed with real-time and static bianchi-scale imaging. COMPARISON: None. FINDINGS: Imaging of the popliteal fossa was obtained. No sonographic abnormality is seen. US/Ext Non Vasc Limited/Soft Tiss IMPRESSION: No sonographic abnormality is seen. Electronically Signed: Evgeny Arenas MD at 14:43 EDT ,
== END | disposition home or self-care (01) ==
PROVIDERS: PCP Internal Medicine; Referring Provider Orthopaedic Surgery Sports Medicine; Visit Provider Orthopaedic Surgery Sports Medicine
DX: R60.9 Edema, unspecified (principal)
CPT/HCPCS: 76882

== ENCOUNTER → 2024-02-19 | Outpatient (CLI) | payer MEDICARE, OTHER, SELFPAY ==
--- NOTE | 2024-02-19 08:30 | MRI_ITS ---
STUDY: MRI LEFT FOOT REASON FOR EXAM: Female, 68 years old. LEFT FOOT OSTEOARTHRITIS TECHNIQUE: Standardized fat and water weighted pulse sequences were obtained in all 3 orthogonal planes. COMPARISON: Left foot radiographs dated 01/16/2024. FINDINGS: Normal bone marrow of the metatarsals, phalanges and visualized distal tarsal row, without fracture, periostitis, erosions or reactive bone edema. Normal sesamoids without sesamoiditis, fracture or avascular necrosis. Normal joint spaces, without effusions. There are no extraarticular fluid collections. Normal visualized Chopart and Lisfranc joints and normal Lisfranc ligament. There is mild first and third intermetatarsal space bursitis. There is minimal posterior tibialis tenosynovitis. Normal visualized distal anterior tibialis tendon. Normal visualized distal peroneus longus and brevis tendons. Normal visualized extensor digitorum longus, extensor hallucis longus, flexor digitorum brevis and flexor hallucis longus tendons. Normal visualized plantar fascia without fasciitis, fibromatosis or tear. Normal intrinsic muscles of the foot, without soft tissue masses or evidence of denervation atrophy. There is minimal subcutaneous soft tissue edema along the dorsum of the forefoot. MRI/Lower Ext/No Jt/w/o IMPRESSION: Mild first and third intermetatarsal space bursitis. Minimal posterior tibialis tenosynovitis. Minimal subcutaneous soft tissue edema along the dorsum of the forefoot. Electronically Signed: Denzel Hollingsworth MD at 10:54 EDT ,
== END | disposition home or self-care (01) ==
LOC: MRI 08:13
PROVIDERS: PCP Internal Medicine; Referring Provider Podiatrist; Visit Provider Podiatrist
DX: M19.072 Primary osteoarthritis, left ankle and foot (principal); M79.672 Pain in left foot
CPT/HCPCS: 73718

== ENCOUNTER → 2024-03-28 | Outpatient (CLI) | payer MEDICARE, OTHER, SELFPAY ==
--- NOTE | 2024-03-28 09:09 | CT_ITS ---
STUDY: CTA CHEST REASON FOR EXAM: Female, 69 years old. STAT. DDIMER ELEV. SOB, R/O PE -- STAT. Known abdominal aortic aneurysm. RADIATION DOSAGE (If Supplied By Facility): CTDIvol = ( 16.20 ) mGy, DLP = ( 508.78 ) mGycm TECHNIQUE: The examination was performed with the intravenous administration of IV 100mL Isovue-370. Post-processing of the angiographic images was performed, with multiplanar reformation and 3D reconstruction. Individualized dose optimization techniques were used for this CT. COMPARISON: Comparison is made with prior study November 11, 2020. FINDINGS: Normal enhancement of the main pulmonary artery and right and left pulmonary arteries. Normal enhancement of the bilateral peripheral pulmonary arteries. There is no demonstrated pulmonary embolism. Normal thoracic aorta and visualized great vessels. There is no demonstrated aortic dissection. Normal heart and pericardium. Normal mediastinum. Normal hilar regions. Normal visualized trachea and bronchi. The lungs are well expanded. Normal pulmonary parenchyma. Normal pleura. Normal chest wall structures. There are degenerative changes of thoracic spine. Findings suggestive by 1.6 cm cyst in the upper medial portion of the left kidney. There is a large hiatal hernia. CT/CTA Chest W/WO Contrast IMPRESSION: No evidence of pulmonary embolism. Large hiatal hernia. Electronically Signed: Evgeny Arenas MD at 9:42 EST ,
[2024-03-28 09:26] LABS: D-Dimer Quantitative (DVT/PE) 0.57 FEU/ug/m (0.27-0.49)
== END | disposition home or self-care (01) ==
LOC: CT 08:54
PROVIDERS: PCP Nurse Practitioner Family; Referring Provider Nurse Practitioner Family; Visit Provider Nurse Practitioner Family
DX: R79.89 Other specified abnormal findings of blood chemistry (principal); R06.02 Shortness of breath
CPT/HCPCS: 71275; 85379; Q9967

== ENCOUNTER → 2024-03-29 | Outpatient (CLI) | payer MEDICARE, OTHER, SELFPAY ==
[2024-03-29 11:07] LABS: Absolute Lymphocyte Count 1.26 X10^3/uL (0.83-4.51); Absolute Neutrophil Count 3.8 X10^3/uL (2.0-7.7); Basophil# 0.05 X10^3/uL; Basophil% 0.9 % (0-1); Eosinophil# 0.05 X10^3/uL; Eosinophils% 0.9 % (0-5); Hematocrit 27.4 % (37-47); Hemoglobin 7.8 g/dL (12.0-15.0); Lymphocyte # 1.26 X10^3/ul (0.83-4.51); Lymphocyte % 22.2 % (19-41); Mean Corp Hgb Conc 28.5 g/dL (32-36); Mean Corpuscular Volume 73.7 fL (81-99); Mean Platelet Vol. 10.7 fl (6.2-12.0); Monocyte# 0.46 X10^3/uL; Monocyte% 8.1 % (0-10); NRBC Flagged by Analyzer 0 % (0-5); Neutrophil # 3.82 X10^3/uL (2.7-7.7); Neutrophil % 67.4 % (47-70); Platelet Count 391 K/mm3 (150-450); RBC Distribution Width CV 18.5 % (11.6-14.6); RBC Distribution Width SD 49.1 fl (35.1-43.9); Red Blood Count 3.72 M/mm3 (4.2-5.4); White Blood Count 5.7 K/mm3 (4.4-11.0)
[2024-03-29 11:12] LABS: Erythrocyte Sedimentation Rate 40 mm/hr (0-30)
[2024-03-29 11:21] LABS: D-Dimer Quantitative (DVT/PE) 0.48 FEU/ug/m (0.27-0.49)
[2024-03-29 11:42] LABS: Vitamin B12 1030 pg/mL (211-911); Vitamin D,25 Hydroxy 44.4 ng/mL
[2024-03-29 11:46] LABS: ALB/GLOB Ratio 0.9 RATIO (0.9-2.4); AST(SGOT) 9 U/L (15-37); Alanine Aminotransfer ALT/SGPT 13 U/L (13-56); Albumin, Serum 3.4 g/dL (3.2-5.0); Alkaline Phosphatase 77 U/L (45-117); Anion Gap 6 (5-15); BUN 18 mg/dL (7-18); CRP 6.44 mg/L (0.0-3.0); Calcium,Total 8.9 mg/dL (8.5-10.1); Chloride 106 mmol/L (98-107); EST Glomerular Filtration Rate 59 mL/min (>60); Est Glom Filt Rate - Afr Amer 71 mL/min (>60); Globulin 3.8 g/dL (2.2-4.2); Glucose 98 mg/dL (74-106); Potassium 4.2 mmol/L (3.5-5.1); Protein, Total 7.2 g/dL (6.4-8.2); Sodium Level 138 mmol/L (136-145); Troponin-I HS 5 pg/mL (3.0-54.0)
== END | disposition home or self-care (01) ==
LOC: LAB 10:07
PROVIDERS: PCP Nurse Practitioner Family; Referring Provider Nurse Practitioner Family; Visit Provider Nurse Practitioner Family
DX: R06.00 Dyspnea, unspecified (principal); R07.89 Other chest pain; E55.9 Vitamin D deficiency, unspecified
CPT/HCPCS: 36415; 80053; 82306; 82607; 84484; 85025; 85379; 85652; 86140

== ENCOUNTER → 2024-04-16 | Outpatient (CLI) | payer MEDICARE, OTHER, SELFPAY ==
--- NOTE | 2024-04-16 09:56 | ECHOD_ITS ---
Reason For Study: DYSPNEA Procedure This was a 2D Doppler, Color Flow transthoracic echocardiogram. The study was technically difficult. Exam performed in department. Left Ventricle Normal size and thickness. Sigmoid septum. The left ventricular ejection fraction is 65 %. Diastolic function is indeterminate. Right Ventricle Normal right ventricle. Atria The left and right atria are normal. Mitral Valve Trivial mitral valve insufficiency. Tricuspid Valve Trivial tricuspid valve insufficiency. Right ventricular systolic pressure estimated to be 39 mmHg. Aortic Valve Trisinus/trileaflet aortic valve. Mild diffuse aortic valve calcification. Mild aortic stenosis. Pulmonic Valve The pulmonic valve is not well visualized. Great Vessels Mildly dilated aortic root. Pericardium/Pleural No pericardial effusion. MMode/2D Measurements & Calculations LVIDd: 5.0 cm IVSd: 0.91 cm LVOT diam: 2.1 cm LVIDs: 2.5 cm LVPWd: 1.1 cm LVOT area: 3.5 cm2 RVDd: 3.4 cm FS: 50.3 % asc Aorta Diam: 3.9 cm LAV(MOD-bp): 45.3 ml LVAd ap4: 21.7 cm2 LAV(MOD-bp) Indexed: 23.1 ml/m2 LVLd ap4: 6.8 cm LAV(MOD-sp2): 44.1 ml EDV(MOD-sp4): 57.5 ml LAV(MOD-sp4): 46.9 ml EDV(sp4-el): 58.5 ml LVAs ap4: 11.5 cm2 LVLs ap4: 5.6 cm ESV(MOD-sp4): 20.2 ml ESV(sp4-el): 20.0 ml EF(MOD-sp4): 64.9 % EF(sp4-el): 65.8 % LVAd ap2: 21.5 cm2 SV(MOD-sp4): 37.3 ml SV(MOD-sp2): 38.1 ml LVLd ap2: 7.1 cm SI(MOD-sp4): 19.1 ml/m2 SI(MOD-sp2): 19.4 ml/m2 EDV(MOD-sp2): 54.9 ml EDV(sp2-el): 55.4 ml LVAs ap2: 10.7 cm2 LVLs ap2: 5.8 cm ESV(MOD-sp2): 16.8 ml ESV(sp2-el): 16.5 ml EF(MOD-sp2): 69.4 % SV(sp4-el): 38.5 ml Ao sinus diam: 3.[address] Junction: 2.5 cm LA dimension(2D): 3.8 cm LA A4 area: 18.5 cm2 RA A4 area: 13.9 cm2 TAPSE: 2.2 cm Time Measurements MV dec time: 0.12 sec Doppler Measurements & Calculations MV E max mynor: 90.8 cm/sec Lat Peak E' Mynor: 9.4 cm/sec Med Peak E' Mynor: 9.8 cm/sec MV A max mynor: 90.4 cm/sec E/E' lat: 9.7 E/E' med: 9.3 MV E/A: 1.0 MV dec slope: 735.0 cm/sec2 Ao V2 max: 216.9 cm/sec LV V1 max: 120.7 cm/sec Ao max P.9 mmHg LV V1 max P.8 mmHg Ao V2 mean: 160.9 cm/sec LV V1 mean P.0 mmHg Ao mean P.2 mmHg LV V1 mean: 97.4 cm/sec Ao V2 VTI: 39.5 cm LV V1 VTI: 23.0 cm AV (velocity ratio): 0.58 BAILEY(I,D): 2.0 cm2 BAILEY(V,D): 2.0 cm2 SV(LVOT): 80.9 ml PA V2 max: 108.3 cm/sec TR max mynor: 290.7 cm/sec TR max P.8 mmHg ECHO/Echo Complete Interpretation Summary The left ventricular ejection fraction is 65 %. Diastolic function is indeterminate. Right ventricular systolic pressure estimated to be 39 mmHg. Mild aortic stenosis. Mildly dilated aortic root. Ordering Physician: Faviola Hicks Referring Physician: Ivana Kirk M.D. Performed By: Melissa Kent RDCS
== END | disposition home or self-care (01) ==
PROVIDERS: PCP Internal Medicine; Referring Provider Nurse Practitioner Family; Visit Provider Nurse Practitioner Family
DX: R06.00 Dyspnea, unspecified (principal)
CPT/HCPCS: 93306

== ENCOUNTER → 2024-06-04 | Outpatient (CLI) | payer MEDICARE, OTHER, SELFPAY ==
[2024-06-04 11:39] LABS: Absolute Lymphocyte Count 1.58 X10^3/uL (0.83-4.51); Absolute Neutrophil Count 3.4 X10^3/uL (2.0-7.7); Basophil# 0.05 X10^3/uL; Basophil% 0.9 % (0-1); Eosinophil# 0.06 X10^3/uL; Eosinophils% 1.1 % (0-5); Hematocrit 32.7 % (37-47); Hemoglobin 9.3 g/dL (12.0-15.0); Lymphocyte # 1.58 X10^3/ul (0.83-4.51); Lymphocyte % 28.4 % (19-41); Mean Corp Hgb Conc 28.4 g/dL (32-36); Mean Corpuscular Hgb 20.5 pg (27.0-32.0); Monocyte# 0.47 X10^3/uL; Monocyte% 8.4 % (0-10); NRBC Flagged by Analyzer 0 % (0-5); Neutrophil # 3.39 X10^3/uL (2.7-7.7); Neutrophil % 60.8 % (47-70); POSITIVE MORPHOLOGY YES; Platelet Count 328 K/mm3 (150-450); RBC Distribution Width CV 20.3 % (11.6-14.6); RBC Distribution Width SD 51.1 fl (35.1-43.9); Red Blood Count 4.54 M/mm3 (4.2-5.4); White Blood Count 5.6 K/mm3 (4.4-11.0)
[2024-06-04 11:46] LABS: Differential Indicated SCAN CRITERIA MET
[2024-06-04 12:00] LABS: Anisocytosis 1+; Ovalocyte 1+; Polychromasia 1+; Tear Drop Cell 1+
[2024-06-04 12:01] LABS: Platelet Estimate a (ADEQ); Target Cells 1+
[2024-06-04 12:06] LABS: Cholesterol 271 mg/dL (200); High Density Lipoprotein 68 mg/dL; Triglycerides 185 mg/dL; Very Low Density Lipoprotein 37 mg/dL (5-40)
== END | disposition home or self-care (01) ==
LOC: LAB 11:06
PROVIDERS: PCP Nurse Practitioner Family; Referring Provider Internal Medicine Cardiovascular Disease; Visit Provider Internal Medicine Cardiovascular Disease
DX: I70.90 Unspecified atherosclerosis (principal); D64.9 Anemia, unspecified

== ENCOUNTER → 2024-06-17 | Outpatient (CLI) | payer MEDICARE, OTHER, SELFPAY ==
[2024-06-17 16:41] LABS: Absolute Lymphocyte Count 1.82 X10^3/uL (0.83-4.51); Absolute Neutrophil Count 5.7 X10^3/uL (2.0-7.7); Basophil# 0.05 X10^3/uL; Basophil% 0.6 % (0-1); Eosinophil# 0.08 X10^3/uL; Hemoglobin 9.4 g/dL (12.0-15.0); Lymphocyte # 1.82 X10^3/ul (0.83-4.51); Lymphocyte % 21.9 % (19-41); Mean Corp Hgb Conc 29.4 g/dL (32-36); Mean Corpuscular Hgb 21.5 pg (27.0-32.0); Mean Corpuscular Volume 73.1 fL (81-99); Mean Platelet Vol. 10.2 fl (6.2-12.0); Monocyte# 0.62 X10^3/uL; Monocyte% 7.5 % (0-10); NRBC Flagged by Analyzer 0 % (0-5); Neutrophil # 5.69 X10^3/uL (2.7-7.7); Neutrophil % 68.5 % (47-70); POSITIVE MORPHOLOGY YES; Platelet Count 350 K/mm3 (150-450); RBC Distribution Width CV 20.6 % (11.6-14.6); RET-HE 22.1 pg (30-35); Red Blood Count 4.38 M/mm3 (4.2-5.4); Reticulocyte Count 1.15 % (0.5-1.5); White Blood Count 8.3 K/mm3 (4.4-11.0)
[2024-06-17 17:09] LABS: Ferritin 14 ng/mL (8-252); Iron 15 ug/dL (50-170); Iron Binding Capacity,Total 382 ug/dL (250-450); LDH 160 U/L (84-246); PERCENT IRON SATURATION 3.9 % (15.0-55.0)
[2024-06-17 17:22] LABS: Differential Indicated SCAN CRITERIA MET
[2024-06-17 19:08] LABS: Ovalocyte 1+
[2024-06-17 19:10] LABS: Anisocytosis 2+; Platelet Morphology LARGE
[2024-06-17 19:13] LABS: Atypical Lymphocyte 1+ %
[2024-06-17 19:14] LABS: Schistocytes RARE
[2024-06-19 05:07] LABS: Haptoglobin 311 mg/dL (37-355)
== END | disposition home or self-care (01) ==
LOC: LAB 15:40
PROVIDERS: PCP Nurse Practitioner Family; Referring Provider Nurse Practitioner Family; Visit Provider Nurse Practitioner Family
DX: D62 Acute posthemorrhagic anemia (principal)
CPT/HCPCS: 36415; 82728; 83010; 83540; 83550; 83615; 85025; 85045

== ENCOUNTER → 2024-07-10 | Outpatient (CLI) | payer MEDICARE, OTHER, SELFPAY ==
[2024-07-10 15:58] LABS: Absolute Lymphocyte Count 1.94 X10^3/uL (0.83-4.51); Absolute Neutrophil Count 3.6 X10^3/uL (2.0-7.7); Basophil# 0.05 X10^3/uL; Basophil% 0.8 % (0-1); Eosinophil# 0.08 X10^3/uL; Eosinophils% 1.3 % (0-5); Hematocrit 34.7 % (37-47); Lymphocyte # 1.94 X10^3/ul (0.83-4.51); Lymphocyte % 30.6 % (19-41); Mean Corp Hgb Conc 28.8 g/dL (32-36); Mean Corpuscular Hgb 21.7 pg (27.0-32.0); Mean Corpuscular Volume 75.3 fL (81-99); Monocyte# 0.61 X10^3/uL; Monocyte% 9.6 % (0-10); NRBC Flagged by Analyzer 0 % (0-5); Neutrophil # 3.64 X10^3/uL (2.7-7.7); Neutrophil % 57.5 % (47-70); POSITIVE MORPHOLOGY YES; Platelet Count 301 K/mm3 (150-450); RBC Distribution Width CV 22.3 % (11.6-14.6); RBC Distribution Width SD 60.7 fl (35.1-43.9); Red Blood Count 4.61 M/mm3 (4.2-5.4); White Blood Count 6.3 K/mm3 (4.4-11.0)
[2024-07-10 15:59] LABS: Differential Indicated SCAN CRITERIA MET
[2024-07-10 16:24] LABS: Anisocytosis 2+; Differential Comment SCANNED
[2024-07-10 16:28] LABS: Vitamin B12 554 pg/mL (211-911)
[2024-07-10 16:37] LABS: Ferritin 12 ng/mL (8-252); Iron 16 ug/dL (50-170); Iron Binding Capacity,Total 402 ug/dL (250-450)
[2024-07-12 16:09] LABS: Deamidated Gliadin IgA 4 units (0-19); Deamidated Gliadin IgG 3 units (0-19); Endomysial Antibody IgA Negative (Negative); Immunoglobulin A 200 mg/dL (87-352); t-Transglutaminase IgA 2 U/mL (0-3)
== END | disposition home or self-care (01) ==
LOC: LAB 15:26
PROVIDERS: PCP Nurse Practitioner Family; Referring Provider Internal Medicine Gastroenterology; Visit Provider Internal Medicine Gastroenterology
DX: D64.9 Anemia, unspecified (principal)
CPT/HCPCS: 36415; 82607; 82728; 82746; 82784; 83516; 83540; 83550; 85025; 86255

== ENCOUNTER 2024-08-02 08:30 | Outpatient (RCR) | payer MEDICARE, OTHER, SELFPAY ==
--- NOTE | 2024-07-26 08:44 | HP.PTEVAL_ITS ---
Patient's Visit Information Visit Information Visit Information: GRACIE BAH is a 69 year old F referred to Physical Therapy by COLTON López with a diagnosis of BPV. Date of Evaluation: 07/26/24 Physical Therapist: Gino Hicks, DPT, OCS, CSCS Visit Plan Frequency: 1-2x /Week Duration: 2-4 Weeks Plan: 1-2x/week for 2-6 weeks for Positional and balance check and progression of activity as needed R HD today and instruct with HO BPPV Subjective Subjective: Saw doctor due to pressure in L ear and some vertigo. did ciaran at home and vertigo seems to have hamlet but still lightheaded with head back or rolling in bed. It lasts less than a minute. Rolling in bed can cause it and takes her extra time to stand. Dizzyness started 6 weeks aftr sudden onset of dizzyness with movement. Had this one time previously. On meclizine. Activities: Doing everything just slower. Walks dogs and Silver Sneakers at [employer]. Uses walking sticks for stability. I want to travel but it worries her. Basic ADLs I. Objective Objective: Wallks slowly into PT I, transfers without UE easily. Hesitant to move had but full aROM cervical without symptoms. UE AROM wFL. - L HD + R HD up torsional nystagmus and dizzy x 15 sec. Treated with modified ciaran then - HD. Balance/Special Test Scores Functional Gait Assessment Score: 25 % Disability: 16.6700 Dizziness Score: 40 Goals Goal 1:: aboish vertigo 48 hours Goal Time Frame: 4-6 Weeks Goal 2:: Lie down adn roll without symptoms Goal Time Frame: 4-6 Weeks Goal 3:: Back to 100% of all activities Goal Time Frame: 4-6 Weeks Goal 4:: DHI score 8 or better Goal Time Frame: 4-6 Weeks Rehabilitation Potential Physical Therapy Diagnosis: positional dizzyness causing diminished activity Rehabilitation Potential: Good Anticipated Interventions Patient/Client Instruction: Educate patient on: Condition and Plan of Care For the Purpose of:: To increase tolerance to activity/condition/position Therapeutic Exercise to Include: Balance training Comment: posoitional treatments For the Purpose of:: To increase tolerance to activity/condition/position Text: Thank you for the opportunity to evaluate your patient. For Medicare and Medicare HMO plans, please review the plan of care and approve it. It will need to be FAXED BACK to us at [phone] for Medicare purposes. For Medicare only, by signing this I certify the plan of care. Please let me know if there are questions or concerns regarding this plan of care. Physician Signature: Date:
--- NOTE | 2024-08-02 08:53 | HP.PTDCSUM ---
Discharge Summary D/C summary: It has been my pleasure to treat GRACIE BAH referred by COLTON López, with the diagnosis of BPV for a total of 2 visit(s). Discharge Date: 08/02/24 Please see the following information for a summary of their discharge status. Subjective Subjective: Doing much better. Will not wait to get help next time. It has been a pretty good week. No problem standing up and showering without a problem tipping head back. Still feels some pressure on inside of ear L. Overall Improvement % Improvement: 100 Objective Objective/Function: - B hallpike kristopher today balance 3 points improved and approx normal for age now, knee pain limits steeps. Goals Goal 1:: aboish vertigo 48 hours Goal Progress: Goal Met Goal 2:: Lie down adn roll without symptoms Goal Progress: Goal Met Goal 3:: Back to 100% of all activities Goal Progress: Goal Met Goal 4:: DHI score 8 or better Goal Progress: Goal Met Plan Plan: d/c D/C Information Discharge Comments: Was BPPV and seems resolved at this time d/c sentence: If there are questions or concerns regarding this patient's physical therapy, please feel free to call me at [phone]. Thank you for the referral of this patient. Sincerely, Gino Hicks, DPT, OCS, CSCS Balance/Gait/Functional tests Balance/Special Test Scores Functional Gait Assessment Score: 28 % Disability: 6.6700 Dizziness Score: 0 Improvement % Improvement: 100
== END 2024-08-02 10:40 | disposition home or self-care (01) ==
LOC: PT 08:30
PROVIDERS: PCP Nurse Practitioner Family; Referring Provider Nurse Practitioner Family; Visit Provider Nurse Practitioner Family
DX: H81.12 Benign paroxysmal vertigo, left ear (principal)
CPT/HCPCS: 97161; 97530

== ENCOUNTER → 2024-08-07 | Outpatient (CLI) | payer MEDICARE, OTHER, SELFPAY ==
--- NOTE | 2024-08-07 12:58 | CDU_ITS ---
Reason For Study Reason For Study: Carotid stenosis Rt. Velocities/BP Lt. Velocities/BP Prox CCA 59.8/13.5 cm/sec. Prox CCA 58.6/16.8 cm/sec. Mid CCA 54.1/18.2 cm/sec. Mid CCA 69.6/21.2 cm/sec. Dist CCA 41.9/12.6 cm/sec. Dist CCA 59.7/22.3 cm/sec. Prox ICA 55.1/22 cm/sec. Prox ICA 51.3/19.2 cm/sec. Mid ICA 85.3/29.6 cm/sec. Mid ICA 84.1/34.5 cm/sec. Dist ICA 76.8/22 cm/sec. Dist ICA 90.3/30.3 cm/sec. Rt. ICA/CCA = 1.58. Lt. ICA/CCA = 1.30. Prox ECA 58.9/22 cm/sec. Prox ECA 64.1/13.5 cm/sec. Rt. Vert. 37.1/11.6 cm/sec. Lt. Vert. 32.5/13.3 cm/sec. Right Extracranial There is homogeneous, smooth atherosclerotic plaque noted in the right common carotid artery. There is intimal thickening but no significant atherosclerotic plaque noted in the right internal carotid artery. The right internal carotid artery is very tortuous. There is intimal thickening but no significant atherosclerotic plaque noted in the right external carotid artery. Antegrade flow is noted in the right vertebral artery. Left Extracranial There is homogeneous, smooth atherosclerotic plaque noted in the left common carotid artery. There is intimal thickening but no significant atherosclerotic plaque noted in the left internal carotid artery. The left internal carotid artery is very tortuous. There is intimal thickening but no significant atherosclerotic plaque noted in the left external carotid artery. Antegrade flow is noted in the left vertebral artery. Procedure Carotid Duplex 65804. This is a Carotid Duplex examination using B-mode, color flow and specral Doppler. Exam performed in department. VL/Carotid Duplex Ultrasound Interpretation Summary No significant atherosclerotic plaque or stenosis noted in the internal carotid arteries bilaterally. Flow within the vertebral arteries is antegrade bilaterally. Ordering Physician: Faviola Hicks Referring Physician: Faviola Hicks Performed By: Yessenia Starkey RVT
== END | disposition home or self-care (01) ==
LOC: CVS 12:57
PROVIDERS: PCP Nurse Practitioner Family; Referring Provider Nurse Practitioner Family; Visit Provider Nurse Practitioner Family
DX: I65.23 Occlusion and stenosis of bilateral carotid arteries (principal)
CPT/HCPCS: 93880